=== PATIENT | male | born 1965 | race Caucasian/White ===

== ENCOUNTER → 2018-04-29 | Outpatient (CLI) | payer OTHER ==
[2018-05-02 00:11] LABS: CHLAMYDIA TRACHOMATIS, NAA Negative (Negative); NEISSERIA GONORRHOEAE, NAA Negative (Negative)
== END | disposition home or self-care (01) ==
LOC: LAB SHORT 14:47 → LAB 14:47
PROVIDERS: Emergency Medicine
DX: N34.1 Nonspecific urethritis (principal)
CPT/HCPCS: 87491; 87591

== ENCOUNTER 2022-05-02 10:00 | Day surgery (SDC) | payer BC ==
[~2022-05-02] VITALS: Ht 172.7 cm; Wt 89.0 kg
[2022-05-02] MEDS ORDERED: Vitamin B-12100 MCG (10:34)
[2022-05-02] MEDS ORDERED: ASPI81CH (10:34)
[2022-05-02] MEDS ORDERED: MULTI-VITAMIN1 EAC2 (10:34)
--- NOTE | 2022-05-02 10:51 | NUR ---
05/02/22 1051 Alecia Gillette PT TOOK SUTAB FOR BOWEL PREP WHICH IS NOT LISTED IN [facility].
== END 2022-05-02 12:14 | disposition home or self-care (01) ==
LOC: ORSCSDS 10:00
PROVIDERS: Surgery
PROC: 0DJD8ZZ Inspection of Lower Intestinal Tract, Via Natural or Artificial Opening Endoscopic (ICD-10-PCS; principal; 2022-05-02 11:15)
DX: Z12.11 Encounter for screening for malignant neoplasm of colon (principal); K57.30 Diverticulosis of large intestine without perforation or abscess without bleeding; E66.9 Obesity, unspecified; Z68.30 Body mass index [BMI] 30.0-30.9, adult; Z79.82 Long term (current) use of aspirin; Z79.899 Other long term (current) drug therapy
CPT/HCPCS: J2704; J7120

== ENCOUNTER → 2024-01-14 | Outpatient (CLI) | payer BC ==
[~2024-01-14] MED LIST: ASPI81CH; MULTI-VITAMIN1 EAC2; Vitamin B-12100 MCG
== END ==
LOC: LAB 17:18 → LAB SHORT 17:18
DX: L02.414 Cutaneous abscess of left upper limb (principal)
CPT/HCPCS: 87070; 87075; 87205

== ENCOUNTER 2025-04-13 14:53 | Emergency (ER) | payer OTHER, BC ==
[~2025-04-13] VITALS: Ht 172.7 cm; Wt 81.7 kg
[2025-04-13 15:06] VITALS: BP 152/99
[2025-04-13] MEDS ORDERED: AMOCLA875 PO (17:16)
== END 2025-04-13 17:24 | disposition home or self-care (01) ==
LOC: ER 14:53
DX: S62.631B Displaced fracture of distal phalanx of left index finger, initial encounter for open fracture (principal); S61.451A Open bite of right hand, initial encounter; Z79.82 Long term (current) use of aspirin; W54.0XXA Bitten by dog, initial encounter
CPT/HCPCS: 73130; 73140; 99283-25; A9270